=== PATIENT | male | born 1955 | race Caucasian/White ===

== ENCOUNTER 2016-11-17 21:35 | Emergency (ER) | payer MEDICAID ==
[2016-08-04 02:27] VITALS: BMI 23.5
[~2016-11-17 21:35] MED LIST: ASPIRIN325 MG PO; BAYER CHEWABLE81 MG PO; DOXEPIN HCL10 MG PO; NEURONTIN250 MG/5 M; NIFEDICAL30 MG/BOTT; PLAVIX75 MG PO
== END 2016-11-17 23:35 | disposition home or self-care (01) ==
LOC: D.ER 21:35
DX: S01.81XA Laceration without foreign body of other part of head, initial encounter (principal); W22.8XXA Striking against or struck by other objects, initial encounter; Y93.89 Activity, other specified; Y92.019 Unspecified place in single-family (private) house as the place of occurrence of the external cause; I82.412 Acute embolism and thrombosis of left femoral vein; F17.200 Nicotine dependence, unspecified, uncomplicated